=== PATIENT | female | born 1935 | race Caucasian/White ===

== ENCOUNTER 2017-01-14 16:21 | Inpatient (IN) ==
[2017-01-14] MEDS ORDERED: ENOXAPARIN 100 MG/ML SYRINGE SUBCUT STA (17:32)
[2017-01-14] MEDS ORDERED: ASPIRIN 325 MG TABLET PO STA (17:32)
[2017-01-14] MEDS ORDERED: DILTIAZEM 50 MG/10 ML VIAL IV STA (17:32)
--- NOTE | 2017-01-14 17:52 | Emergency Department Note ---
Arrival - Arrival ED Nursing Triage Note: PT SENT FROM DR SHELL FOR ELEVATED HR. PT STATES SHE HAS HAD THE FEELING OF HER HEART RACING X1 WEEK. DENIES SHORTNESS OF BREATH OR PAIN ANYWHERE. Mode of Arrival: Wheelchair Limitations: No Limitations Source: Patient <Gallo Nunoip Mitchell - Last Filed: 01/14/17 17:50> <Garrett Moore - Last Filed: 01/14/17 20:24> - Arrival Chief Complaint: Arrhythmia/Palpitations Stated Complaint: HEART Time Seen by Provider: 01/14/17 17:25 - History of Present Illness HPI Narrative: This is an 81-year-old white female who presents the ED complaining of palpitations the last 2 weeks. Patient was seen at a localization's office today and was noted to be in atrial fibrillation with a rate of 140. She has no prior history of atrial fibrillation. Patient denies any chest pain shortness of breath and lightheadedness fever or cough. She does have a history of Graves' disease for which she takes thyroid medications. (Tex Nuno) Allergies/Adverse Reactions: Allergies Allergy/AdvReac Type Severity Reaction Status Date / Time lisinopril AdvReac Cough Verified 01/14/17 17:09 Home Medications: Home Medications Medication Instructions Recorded Confirmed Type Aspirin [Aspirin EC] 81 mg PO BEDTIME 01/14/17 01/14/17 History Calcium (Carb)/Vit D 500-200 1 tablet PO BEDTIME 01/14/17 01/14/17 History [Oscal 500 + D] Levothyroxine Tab [Synthroid Tab] 88 mcg PO DAILY 01/14/17 01/14/17 History [place]-3 Fatty Acids [Fish Oil 1,000 mg PO BEDTIME 01/14/17 01/14/17 History Concentrate] amLODIPine [Norvasc] 5 mg PO BEDTIME 01/14/17 01/14/17 History Review of System - Review of System 12 point system: reviewed and no additional remarkable complaints except as stated - Review of System Cardiovascular: Present: as per HPI, palpitations <Tex Nuno Mitchell - Last Filed: 01/14/17 17:50> Medical,Surgical,& Family Hx - Medical History Medical History: noncontributory Cardio: History of: Cardiac Dysrhythmia (A-FIB), Hypertension Endocrine: History of: Thyroid Disorder (GRAVES DISEASE) - Social History Smoking Status: Never smoker Frequency of Alcohol Use: None Type of Drug Use: None <Tex Nuno - Last Filed: 01/14/17 17:50> Exam - General General appearance: alert, in no apparent distress - Head Head exam: Present: atraumatic - Eye Eye exam: Present: normal appearance, PERRL, EOMI - ENT ENT exam: Present: normal exam, normal oropharynx, TM's normal bilaterally - Neck Neck exam: Present: normal inspection. Absent: lymphadenopathy - Chest Chest inspection: Present: normal inspection - Respiratory Respiratory exam: Present: normal lung sounds bilaterally. Absent: rales, respiratory distress, wheezes - Cardiovascular Cardiovascular exam: Present: tachycardia, irregular rhythm. Absent: murmur, rubs, gallop - Abdominal Exam Abdominal exam: Present: soft. Absent: distention, tenderness - Rectal Exam Rectal exam: Present: deferred - Extremities Exam Extremities exam: Present: normal inspection - Back Exam Back exam: Present: normal inspection - Neurological Exam Neurological exam: Present: alert, oriented X3, CN II-XII intact - Psychiatric Psychiatric exam: Present: normal affect, normal mood - Skin Skin exam: Present: warm, dry <Tex Nuno - Last Filed: 01/14/17 17:50> Vital Signs: Vital Signs Temperature 97.1 F L 01/14/17 17:21 Pulse Rate 90 01/14/17 19:03 Respiratory Rate 16 01/14/17 19:03 Blood Pressure 120/86 01/14/17 19:03 O2 Sat by Pulse Oximetry 95 01/14/17 19:03 Course <Tex Nuno - Last Filed: 01/14/17 17:50> - Consultations Time: 20:22 <Garrett Moore - Last Filed: 01/14/17 20:24> - Consultations Consultation #1: Hospitalist will admit patient (Garrett Moore) Results - Labs CBC & BMP: 01/14/17 18:41 01/14/17 18:41 Lab Results: I have reviewed the patients labs <Garrett Moore - Last Filed: 01/14/17 20:24> Disposition <Tex Nuno - Last Filed: 01/14/17 17:50> Case discussed with: patient Time of Disposition: 20:24 <Garrett Moore - Last Filed: 01/14/17 20:24> Clinical Impression: Palpitations, New-onset A. fib RVR Disposition: Still a Patient Condition: Stable
--- NOTE | 2017-01-14 18:06 | XRay Report ---
XR chest 1V portable Indication: Shortness of breath. Chest one view: No comparison. Heart is borderline enlarged. Mediastinal contours unremarkable. There is airways disease present with diffuse periosteal thickening, moderately severe. No focal pneumonia. No significant pulmonary edema. Impression: Airways disease such as chronic bronchitis or viral syndrome. Borderline cardiomegaly without overt CHF. PROCEDURE INTERPRETED AT [facility] DEPARTMENT OF RADIOLOGY Final Report Signed by: Morgan Tinajero M.D.
[2017-01-14] MEDS ORDERED: ENOXAPARIN 80 MG/0.8 ML SYRINGE SUBCUT ONE (18:31)
[2017-01-14] MEDS ORDERED: DILTIAZEM 100 MG VIAL.ADD IV ONE (18:32)
[2017-01-14] MEDS ORDERED: ASPIRIN 325 MG TABLET ONE (18:32)
[2017-01-14] MEDS ORDERED: DILTIAZEM 50 MG/10 ML VIAL IV ONE (18:32)
[2017-01-14] MEDS: DILTIAZEM INJ 100 MG in SODIUM CHLORIDE 0.9% 100 ML IV SCH (18:44)
[2017-01-14 19:10] LABS: Basophils # 0.1 10*3/uL (0.0-0.2); Basophils % 0.7 % (0.0-0.8); Eosinophils # 0.2 10*3/uL (0.0-0.87); Eosinophils % 2.6 % (0.00-10.9); Hematocrit 47.3 VOL% (35.7-47.0); Immature Granulocytes % 0.3 %; Immature Granulocytes Absolute 0.02 #; Lymphocytes # 2.7 10*3/uL (1.4-4.0); Lymphocytes % 36.4 % (21.3-54.2); Mean Corpuscular HGB Conc 31.7 GM/DL (32-36); Mean Corpuscular Hemoglobin 29 PG (27-34); Mean Platelet Volume 10.3 FL (9.6-12.0); Monocytes # 0.6 10*3/uL (0.11-0.8); Monocytes % 8.6 % (1.7-12.7); Neutrophils # 3.8 10*3/uL (1.4-7.4); Neutrophils % 51.4 % (38.7-73.9); Platelet Count 248 T/CUMM (130-400); Red Blood Count 5.14 MC/CUMM (3.8-5.5); Red Cell Distribution Width 13.7 % (9.3-17.3); White Blood Count 7.4 T/CUMM (4-12)
[2017-01-14 19:22] LABS: Alanine Aminotransferase 24 U/L (13-56); Albumin 4.1 G/DL (3.4-5.0); Alkaline Phosphatase 94 U/L (45-117); Aspartate Amino Transferase 18 U/L (0-37); Blood Urea Nitrogen 13 MG/DL (7-18); Calcium 8.8 MG/DL (8.5-10.1); Glucose 94 MG/DL (74-106); Magnesium 2.2 MG/DL (1.8-2.4); Osmolality,Calculated 280.3 MOS/KG (273-304); Potassium 3.9 MMOL/L (3.5-5.1); Sodium 141 MMOL/L (136-145); Total Protein 6.9 G/DL (6.4-8.3); Troponin I Only < 0.015 NG/ML (0.00-0.045)
[2017-01-14] MEDS ORDERED: ONDANSETRON 4 MG/2 ML VIAL IV PRN (20:27)
[2017-01-14] MEDS ORDERED: ACETAMINOPHEN 325 MG TABLET PO PRN (20:27)
[2017-01-14] MEDS ORDERED: DILTIAZEM INJ 100 MG in SODIUM CHLORIDE 0.9% 100 ML IV SCH (20:30)
--- NOTE | 2017-01-14 20:34 | EKG Report ---
Stationary ECG Study [facility] ER Test Date: 01/14/2017 5:10:50 PM Pat Name: KIM SANCHEZ Department: Room: Gender: F Talkback Host: : [phone] Requested by: Estrella Verdin Order Number: [id number] Reading MD: VALENCIA LINK Intervals [place] Rate: 140 P: 999 MS: 0 QRS: -68 QRSD: 107 T: 72 QT: 290 QTc: 371 Interpretive Statements ATRIAL FIBRILLATION WITH RAPID VENTRICULAR RESPONSE ABNORMAL LEFT AXIS DEVIATION ANTEROSEPTAL INFARCT, AGE UNDETERMINED Electronically Signed On 01-15-17 11:29:16 CDT by VALENCIA LINK [email or web address]
--- NOTE | 2017-01-14 20:57 | Hospitalist History & Physical ---
Assessment and Plan (1) Atrial fibrillation with rapid ventricular response Status: Acute Assessment and plan: Diltiazem drip, subcu Lovenox, p.o. diltiazem, cardiology consult in a.m., check TSH Current Visit: Yes (2) Graves disease Status: Acute Assessment and plan: Status post radioactive iodine in the remote past currently on Synthroid replacement Current Visit: Yes History of Present Illness Chief complaint: Palpitation History of present illness: Ms. Brantley is a 81 year old female with a history of Graves' disease that received radioactive iodine in the remote past and was placed on Synthroid. She has had a recent change in her Synthroid medicine from 88-100 g. For the last 2 days she has noted palpitations becoming more frequently. She made an appointment to see Dr. Ryder today and was found to be in A. fib with rapid ventricular response. She was sent to the emergency room her rate was 140 at that time. She said she has had atrial fib when she was first diagnosed with Graves' disease but then it resolved without problems. She also has a history of hypertension but otherwise she is extremely healthy. She has not seen a coin machine mechanic here before. Home Medications Medication Instructions Recorded Confirmed Type Aspirin [Aspirin EC] 81 mg PO BEDTIME 01/14/17 01/14/17 History Calcium (Carb)/Vit D 500-200 1 tablet PO BEDTIME 01/14/17 01/14/17 History [Oscal 500 + D] Levothyroxine Tab [Synthroid Tab] 88 mcg PO DAILY 01/14/17 01/14/17 History [place]-3 Fatty Acids [Fish Oil 1,000 mg PO BEDTIME 01/14/17 01/14/17 History Concentrate] amLODIPine [Norvasc] 5 mg PO BEDTIME 01/14/17 01/14/17 History Allergies Allergy/AdvReac Type Severity Reaction Status Date / Time lisinopril AdvReac Cough Verified 01/14/17 17:09 Medical,Surgical,& Family Hx - Medical History Cardio: History of: Cardiac Dysrhythmia (A-FIB), Hypertension Endocrine: History of: Thyroid Disorder (GRAVES DISEASE) - Surgical History HEENT Surgeries: Surgical HX of: Eye Surgery (Bilateral cataract) - Family History Family History: Reports;: Family Diabetes, Family Heart Disease - Social History Smoking Status: Never smoker Frequency of Alcohol Use: None Type of Drug Use: None Marital Status: Lives With:: Spouse Functional capacity: independent ambulation - Constitutional Constitutional: Absent: fatigue, frequent falls, headache(s), weight loss - EENT Eyes: Absent: blurry vision, diplopia Ears: Absent: decreased hearing, ear discharge Nose, mouth and throat: Absent: headache(s), sore throat - Cardiovascular Cardiovascular: Present: palpitations. Absent: chest pain at rest, dyspnea - Respiratory Respiratory: Absent: dyspnea, dyspnea on exertion - Gastrointestinal Gastrointestinal: Absent: constipation, diarrhea, nausea, vomiting - Genitourinary Genitourinary: Absent: difficulty urinating, dysuria - Neurological Neurological: Absent: confusion, headache(s), syncope - Psychiatric Psychiatric: Absent: anxiety, depression - Endocrine Endocrine: Absent: cold intolerance, fatigue, heat intolerance - Hematologic/Lymphatic Hematologic/Lymphatic: Absent: easy bleeding, easy bruising Exam - Constitutional Vitals: Period Temp Pulse Resp BP Sys/Eller Pulse Ox Last 24 Hr 97.1 F-97.1 F 90-132 16-19 120-150/86-111 95-97 General appearance: normal weight, no acute distress - Head Head exam: Present: normal inspection, normocephalic - Eye Eye exam: Present: EOMI. Absent: scleral icterus Pupils: Present: JOHN, normal accommodation - ENT ENT exam: Present: normal exam, normal external ear exam - Neck Neck exam: Absent: lymphadenopathy, thyromegaly - Respiratory Respiratory exam: Absent: clear to auscultation bilaterally, wheezes - Cardiovascular Cardiovascular exam: Present: irregular rhythm, tachycardia - GI/Abdominal GI/Abdominal exam: Present: normal bowel sounds, soft. Absent: tenderness - Extremities Exam Extremities exam: Present: normal inspection, normal capillary refill - Neurological Exam Neurological exam: Present: alert, oriented X3, CN II-XII intact, reflexes normal. Absent: motor sensory deficit - Psychiatric Psychiatric exam: Present: normal affect, normal mood - Skin Skin exam: Present: normal color, warm Results - Labs CBC & BMP: 01/14/17 18:41 01/14/17 18:41 Lab Results: I have reviewed the past 24 hour labs - EKG EKG shows: atrial fibrillation (Q waves in V1 and V2 with ST depression in lateral leads) - Diagnostic Findings Procedure: Chest x-ray: report reviewed by me (Nothing acute)
[2017-01-14] MEDS ORDERED: ASPIRIN EC 81 MG TABLET PO SCH (21:00)
[2017-01-14 21:04] LABS: PT Patient Result 10.8 SECS; Partial Thromboplastin Time 27.9 SECS (0-40)
[2017-01-14] MEDS: DILTIAZEM 60 MG TABLET PO SCH (22:30)
[2017-01-14] MEDS: SODIUM CHLORIDE 0.9% 1,000 ML IV SCH (22:30)
[2017-01-14 23:13] LABS: Troponin I Only < 0.015 NG/ML (0.00-0.045)
[2017-01-15 03:53] LABS: Basophils % 0.5 % (0.0-0.8); Eosinophils # 0.2 10*3/uL (0.0-0.87); Eosinophils % 3.7 % (0.00-10.9); Hematocrit 42.1 VOL% (35.7-47.0); Hemoglobin 13.2 GM/DL (12.0-16.0); Immature Granulocytes % 0.3 %; Immature Granulocytes Absolute 0.02 #; Lymphocytes # 2.6 10*3/uL (1.4-4.0); Lymphocytes % 40.9 % (21.3-54.2); Mean Corpuscular HGB Conc 31.4 GM/DL (32-36); Mean Corpuscular Hemoglobin 29 PG (27-34); Mean Corpuscular Volume 93.3 FL (87-102); Mean Platelet Volume 10.5 FL (9.6-12.0); Monocytes # 0.8 10*3/uL (0.11-0.8); Monocytes % 12.3 % (1.7-12.7); Neutrophils # 2.7 10*3/uL (1.4-7.4); Neutrophils % 42.3 % (38.7-73.9); Platelet Count 216 T/CUMM (130-400); Red Blood Count 4.51 MC/CUMM (3.8-5.5); Red Cell Distribution Width 13.7 % (9.3-17.3); White Blood Count 6.4 T/CUMM (4-12)
[2017-01-15 04:28] LABS: Troponin I Only < 0.015 NG/ML (0.00-0.045)
[2017-01-15 04:38] LABS: Calcium 8.4 MG/DL (8.5-10.1)
[2017-01-15 04:39] LABS: Osmolality,Calculated 292.4 MOS/KG (273-304); Potassium 3.8 MMOL/L (3.5-5.1)
[2017-01-15] MEDS ORDERED: ENOXAPARIN 80 MG/0.8 ML SYRINGE SUBCUT SCH (06:00)
[2017-01-15] MEDS: PANTOPRAZOLE 40 MG TABLET PO SCH (08:36)
[2017-01-15] MEDS: ASPIRIN 325 MG TABLET PO SCH (08:36)
[2017-01-15] MEDS: DILTIAZEM 60 MG TABLET PO SCH ×3 (08:36→20:48)
[2017-01-15] MEDS ORDERED: LEVOTHYROXINE 88 MCG TABLET PO SCH (09:00)
[2017-01-15] MEDS ORDERED: DIGOXIN 0.5 MG/2 ML AMP IV ONE (10:07)
--- NOTE | 2017-01-15 11:47 | Hospitalist Progress Note ---
Assessment and Plan (1) Atrial fibrillation with rapid ventricular response Status: Acute Assessment and plan: Continue diltiazem drip and subcu Lovenox, p.o. diltiazem, will add dig, cardiology consulted., May need Eliquis Current Visit: Yes (2) Graves disease Status: Acute Assessment and plan: TSH normal free T4 upper limit of normal will restart Synthroid at lower dose tomorrow. Current Visit: Yes Hospitalist: Subjective Interval history: Patient reports feeling fine but she remains in atrial fib and is still on 5 mg of a Dilt drip. Will add dig to her regimen. Cardiology will be seeing her later. Exam - Constitutional Vitals: Period Temp Pulse Resp BP Sys/Eller Pulse Ox Last 24 Hr 97.1 F-97.7 F 72-97 16-20 100-125/60-76 91-99 Exam: Heart Rate-[irregular rate and rhythm] Lungs-[CTAB] GI-[+bs soft, NT] Ext-[no edema] Neuro [Motor 5/5], [alert and oriented times 3] psych [normal mood and affect] General [no acute distress] Results - Labs CBC & BMP: 01/15/17 02:57 01/15/17 02:57 Lab Results: I have reviewed the past 24 hour labs Quality Measures - Stroke Symptom Onset Unknown: No
--- NOTE | 2017-01-15 12:03 | Cardiology Consult Note ---
<Shadia Azevedo E - Last Filed: 01/15/17 12:14> Assessment and Plan - Time spent with patient Time spent with patient: Greater than 30 minutes (Due to assessment, plan, and documentation.) (1) Atrial fibrillation with rapid ventricular response Status: Acute Assessment and plan: Continue with IV Cardizem and wean to p.o. She has already been started on Cardizem 60 mg p.o. 3 times daily. Rates currently controlled in the 70s and 80s. Will start on Eliquis 5 mg p.o. twice daily for stroke prevention. Creatinine is 0.6. She has had no previous bleeding issues and is not at risk for falls. Current Visit: Yes (2) Palpitations Status: Acute Assessment and plan: Currently asymptomatic. Current Visit: Yes (3) Hypertension Status: Chronic Assessment and plan: Currently well controlled on Norvasc. We will continue to monitor and adjust as needed. 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 Current Visit: Yes (5) Graves disease Status: Chronic Assessment and plan: Managed by her PCP. Currently has normal TSH and free T4. She is on Synthroid 88 g p.o. daily. She previously saw an business office technician in [place] underwent radioactive iodine treatment. Current Visit: Yes History of Present Illness - Data of Consult Patient: new to practice Consult date: 01/14/17 Requesting Physician: Estrella Pickard Primary care physician: Geri Ryder - Consult Narrative Reason for consult: AF RVR History of present illness: PIT FURNACE MELTER: NONE PCP: DR. GERI RYDER Allergies: Lisinopril (cough) Ms. Brantley is a 81 year old female who does not follow routinely with cardiology. Her primary care provider is Dr. Ryder. She has history of hypertension and Graves' disease. She is a lifetime non-smoker. She has risk factors significant for: Hypertension, age. She is normally a very active individual. She previously walked 1.5 miles per day until she injured her foot in October 2016. She has not resumed her exercise regimen since then but plans on doing so. She went to Dr. Ryder's office yesterday due to an increased frequency of palpitations. She reports for the last several weeks she has noticed feeling like her heart has been racing. She reports when it does this it makes her feel "jittery." She denies any associated chest pain, shortness of breath, dizziness, lightheadedness, syncope. She reports these episodes of palpitations may happen at rest or during activity. Ms. Brantley tells me that she has had atrial fibrillation in the past when she was first diagnosed with Graves' disease approximately 20 years ago. She does not that time she saw a strategic accounts manager in [place] and underwent a stress test which was normal and the atrial fibrillation eventually resolved on its own. She did require radioactive iodine for treatment for Graves' disease and is currently on Synthroid replacement. She reports she is able to climb 2 flights of stairs without chest pain or shortness of breath. She denies any history of melena or hematochezia but does report chronic hematuria. She tells me this is been worked up in the past and she has undergone cystogram which was benign. Her chronic hematuria is felt to be a result of frequent cystitis during childhood. She does report occasional pain underneath her left breast. She describes this as a muscle ache which will reach around to her back that occurs once every couple of weeks. She reports this may last half a day and go away or taking [id number] medication. She has no associated shortness of breath, palpitations, dizziness, lightheadedness, diaphoresis, nausea, vomiting with these episodes. An echocardiogram has been ordered and will be read by Dr. Chacko. She is currently on IV Cardizem at 5 mg an hour. Heart rates are better controlled in the 70s and 80s. She is still in atrial fibrillation. Creatinine 0.6. TSH 1.07, free T4 1.37. She has had serial negative troponins, CK-MB, CPK. Dr. Chacko to follow with further plan and addendum. Assessment/Plan: 1. Atrial fibrillation with rapid ventricular response -continue with IV Cardizem and went p.o. She has already been started on Cardizem 6 mg p.o. 3 times daily. Next currently controlled in the 70s and 80s. Will start on Eliquis 5 mg p.o. twice daily for stroke prevention. Creatinine is 0.6. She has had no previous bleeding issues and is not at risk for falls. 2. Palpitations -probably asymptomatic. 3. Hypertension -currently well controlled on Norvasc 5 mg p.o. daily. Will continue to monitor and adjust as needed. 4. Allergy to TOÑO inhibitors -patient reports cough with lisinopril. 5. Graves' disease -managed by her PCP. Currently has normal TSH and free T4. She is on Synthroid 88 g p.o. daily. She previously saw an business office technician in [facility] and underwent radioactive iodine treatment. CC: Estrella Pickard MD - Home Medications and Allergies Home Medications: Home Medications Medication Instructions Recorded Confirmed Type Aspirin [Aspirin EC] 81 mg PO BEDTIME 01/14/17 01/14/17 History Calcium (Carb)/Vit D 500-200 1 tablet PO BEDTIME 01/14/17 01/14/17 History [Oscal 500 + D] Levothyroxine Tab [Synthroid Tab] 88 mcg PO DAILY 01/14/17 01/14/17 History [place]-3 Fatty Acids [Fish Oil 1,000 mg PO BEDTIME 01/14/17 01/14/17 History Concentrate] amLODIPine [Norvasc] 5 mg PO BEDTIME 01/14/17 01/14/17 History Allergies/Adverse Reactions: Allergies Allergy/AdvReac Type Severity Reaction Status Date / Time lisinopril AdvReac Cough Verified 01/14/17 17:09 Review of systems: - Constitutional: Present: As per HPI. Absent: anorexia, chills, daytime sleepiness, excessive sweating, fever(s), frequent falls, headache(s), increased appetite, lethargy, malaise, night sweats, stops breathing during sleep, weakness, weight gain, weight loss, fatigue. - EENT Eyes: Present: As per HPI. Absent: blurry vision, diplopia, loss of vision Ears: Present: As per HPI. Absent: decreased hearing, ear discharge, ear pain Nose, mouth and throat: Present: As per HPI. Absent: dysphagia, epistaxis, headache(s), hoarseness, lip swelling, nasal congestion, neck mass, neck pain, sinus pressure, sore throat, throat swelling, tongue swelling, vertigo - Cardiovascular: Present: palpitations, chest pain at rest, as per HPI. Absent : chest pain with activity, dyspnea, dyspnea on exertion, edema, claudication, diaphoresis, radiating jaw, neck or arm pain, lightheadedness, orthopnea, PND - Respiratory: Present: as per HPI. Absent: dyspnea, dyspnea on exertion, cough , hemoptysis, wheezing, snoring, pain on inspiration - Gastrointestinal: Present: As per HPI. Absent: abdominal pain, bloating, change in bowel habits, constipation, diarrhea, heartburn, hematemesis, hematochezia, loose stools, melena, nausea, vomiting - Genitourinary: Present: Chronic hematuria, As per HPI. Absent: difficulty urinating, dysuria, flank pain, nocturia, urinary frequency, urinary incontinence - Musculoskeletal: Present: myalgias, As per HPI. Absent: arthralgias, back pain , joint swelling, limited range of motion, muscle cramps, muscle weakness - Neurological: Present: As per HPI. Absent: abnormal gait, abnormal speech, behavioral changes, confusion, convulsions, disequilibrium, dizziness, focal weakness, frequent falls, headache(s), memory loss, numbness, paresthesias, radicular pain, syncope, tremor(s) - Psychiatric: Present: As per HPI. Absent: anxiety, confusion, depression, panic attacks - Endocrine: Present: As per HPI. Absent: cold intolerance, fatigue, heat intolerance, polydipsia, polyphagia - Hematologic/Lymphatic: Present: As per HPI. Absent: easy bleeding, easy bruising, lymphadenopathy Medical,Surgical,& Family Hx - Medical History Cardio: History of: Cardiac Dysrhythmia (A-FIB), Hypertension Endocrine: History of: Thyroid Disorder (GRAVES DISEASE) Genitourinary: History of: Problems (chronic hematuria, recurrent cystitis during childhood) - Surgical History HEENT Surgeries: Surgical HX of: Eye Surgery (Bilateral cataract) - Family History Family History: Reports;: Family Diabetes (bother sister), Family Heart Disease (bother sister mother father) - Social History Smoking Status: Never smoker Frequency of Alcohol Use: None Type of Drug Use: None Marital Status: Lives With:: Spouse Functional capacity: independent ambulation Physical Examination Vital Signs Temp Pulse Resp BP Pulse Ox 97.1 F L 121 H 16 150/111 97 01/14/17 17:02 01/14/17 17:02 01/14/17 17:02 01/14/17 17:02 01/14/17 17:02 Other: General appearance: Pleasant and cooperative. Normal weight, no acute distress. - Head Head exam: Present: normal inspection, normocephalic, atraumatic. Absent: hematoma, laceration - Eye Eye exam: Present: EOMI. Absent: conjunctival injection, nystagmus, periorbital swelling, scleral icterus, laceration to eyelids Pupils: Present: PERRL. Absent: constricted, dilated, fixed, irregular, unequal - ENT ENT exam: Present: normal exam, normal external ear exam - Neck Neck exam: Present: normal inspection. Absent: lymphadenopathy, meningismus, tenderness, thyromegaly - Respiratory Respiratory exam: Present: clear to auscultation bilaterally. Absent: accessory muscle use, chest wall tenderness - Cardiovascular Cardiovascular exam: Present: regular rate and irregular rhythm. Absent: carotid bruit, gallop, JVD, rubs, murmur - GI/Abdominal GI/Abdominal exam: Present: normal bowel sounds, soft. Absent: distended, firm , guarding, hernia, mass, tenderness, rebound. - Extremities Exam Extremities exam: Present: normal inspection, normal capillary refill. Upper extremity pulses 2+. Lower extremity pulses 2+. Absent: calf tenderness, edema - Back Exam Back exam: Present: normal inspection. Absent: muscle spasm, vertebral tenderness - Neurological Exam Neurological exam: Present: alert, oriented X3, grossly intact without resting or essential tremor - Psychiatric Psychiatric exam: Present: normal affect, normal mood - Skin Skin exam: Present: normal color, warm, dry, intact. Absent: cyanosis, diaphoretic, rash, urticaria Result/EKG - Labs CBC & BMP: 01/15/17 02:57 01/15/17 02:57 Lab Results: I have reviewed the past 24 hour labs Labs: Laboratory Results - last 24 hr 01/14/17 01/14/17 01/14/17 21:00 22:25 Unknown WBC RBC Hgb Hct MCV MCH MCHC RDW Plt Count MPV Neut % (Auto) Lymph % (Auto) Andrews % (Auto) Eos % (Auto) Baso % (Auto) Neut # (Auto) Lymph # (Auto) Andrews # (Auto) Eos # (Auto) Baso # (Auto) Immature Gran % Nucleated RBC % Immature Gran # Nucleated RBCs # INR 1.0 PT Patient/Control Mix 10.8 Circ Anticoag PTT 27.9 Sodium Potassium Chloride Carbon Dioxide Anion Gap BUN Creatinine GFR Calculation BUN/Creatinine Ratio Glucose Calculated Osmolality Calcium Total Creatine Kinase 190 CK-MB (CK-2) 2.2 Troponin I < 0.015 Free T4 1.37 01/15/17 01/15/17 01/15/17 02:57 02:57 02:57 WBC 6.4 RBC 4.51 Hgb 13.2 Hct 42.1 MCV 93.3 MCH 29 MCHC 31.4 L RDW 13.7 Plt Count 216 MPV 10.5 Neut % (Auto) 42.3 Lymph % (Auto) 40.9 Andrews % (Auto) 12.3 Eos % (Auto) 3.7 Baso % (Auto) 0.5 Neut # (Auto) 2.7 Lymph # (Auto) 2.6 Andrews # (Auto) 0.8 Eos # (Auto) 0.2 Baso # (Auto) 0.0 Immature Gran % 0.3 Nucleated RBC % 0.0 Immature Gran # 0.02 Nucleated RBCs # 0.00 INR PT Patient/Control Mix Circ Anticoag PTT Sodium 147 H Potassium 3.8 Chloride 109 H Carbon Dioxide 27 Anion Gap 14.8 BUN 12 Creatinine 0.60 GFR Calculation 89 BUN/Creatinine Ratio 20.00 Glucose 116 H Calculated Osmolality 292.4 Calcium 8.4 L Total Creatine Kinase 159 CK-MB (CK-2) 2.0 Troponin I < 0.015 Free T4 - EKG EKG results: interpreted by me EKG shows: atrial fibrillation Quality Measures - Stroke Symptom Onset Unknown: No <GinnaFahad - Last Filed: 01/15/17 14:59> History of Present Illness - Consult Narrative History of present illness: Cardiology addendum. Patient examined and chart reviewed. She has been having palpitations for the past [address] Ryder in the office yesterday. EKG showed atrial fib and she was referred to the ER for further evaluation and treatment. Currently on IV Cardizem and Eliquis 5 mg twice daily. Patient has chronic hypertension and has been on Norvasc for about 3 years. No history of stroke. Lifetime non-smoker. No history of heart attack congestive heart failure or exertional angina. She does have a history of Graves' disease treated in 1996 with radioactive iodine in [place]. She also had atrial fib at that time that converted with medication. Free T4 level is 1.37. Negative CPK. Chest x-ray shows mild cardiomegaly but no heart failure or infiltrate. Plan Continue IV Cardizem Continue Eliquis 5 mg twice daily Echo Doppler Begin sotalol 80 mg twice daily CC: Estrella Pickard MD Physical Examination Vital Signs Temp Pulse Resp BP Pulse Ox 97.1 F L 121 H 16 150/111 97 01/14/17 17:02 01/14/17 17:02 01/14/17 17:02 01/14/17 17:02 01/14/17 17:02 Result/EKG - Labs CBC & BMP: 01/15/17 02:57 01/15/17 02:57 Labs: Laboratory Results - last 24 hr 01/14/17 01/14/17 01/14/17 21:00 22:25 Unknown WBC RBC Hgb Hct MCV MCH MCHC RDW Plt Count MPV Neut % (Auto) Lymph % (Auto) Andrews % (Auto) Eos % (Auto) Baso % (Auto) Neut # (Auto) Lymph # (Auto) Andrews # (Auto) Eos # (Auto) Baso # (Auto) Immature Gran % Nucleated RBC % Immature Gran # Nucleated RBCs # INR 1.0 PT Patient/Control Mix 10.8 Circ Anticoag PTT 27.9 Sodium Potassium Chloride Carbon Dioxide Anion Gap BUN Creatinine GFR Calculation BUN/Creatinine Ratio Glucose Calculated Osmolality Calcium Total Creatine Kinase 190 CK-MB (CK-2) 2.2 Troponin I < 0.015 Free T4 1.37 01/15/17 01/15/17 01/15/17 02:57 02:57 02:57 WBC 6.4 RBC 4.51 Hgb 13.2 Hct 42.1 MCV 93.3 MCH 29 MCHC 31.4 L RDW 13.7 Plt Count 216 MPV 10.5 Neut % (Auto) 42.3 Lymph % (Auto) 40.9 Andrews % (Auto) 12.3 Eos % (Auto) 3.7 Baso % (Auto) 0.5 Neut # (Auto) 2.7 Lymph # (Auto) 2.6 Andrews # (Auto) 0.8 Eos # (Auto) 0.2 Baso # (Auto) 0.0 Immature Gran % 0.3 Nucleated RBC % 0.0 Immature Gran # 0.02 Nucleated RBCs # 0.00 INR PT Patient/Control Mix Circ Anticoag PTT Sodium 147 H Potassium 3.8 Chloride 109 H Carbon Dioxide 27 Anion Gap 14.8 BUN 12 Creatinine 0.60 GFR Calculation 89 BUN/Creatinine Ratio 20.00 Glucose 116 H Calculated Osmolality 292.4 Calcium 8.4 L Total Creatine Kinase 159 CK-MB (CK-2) 2.0 Troponin I < 0.015 Free T4
[2017-01-15] MEDS: APIXABAN 5 MG TABLET PO SCH ×2 (12:59→20:48)
--- NOTE | 2017-01-15 15:56 | ECHO Report ---
Iona Brantley Exam Date: 01/15/2017 07:59 Referring Physician: Technologist: Kellen Pereira RDCS Age: 81 Ht (in): 65 Wt (lb): 155 Gender: F Exam Location: [facility] Echo Indications: Atrial fibrillation, Palpitations, Essential (primary) hypertension, Grraves disease BP: 109 / 69 HR: 94 Rhythm: Atrial fibrillation Technical Quality: Fair IMPRESSIONS EF 45 %, mild global hypokinesis. The right ventricle is normal in size and function. Moderately increased right atrial size. Moderately increased left atrial size. Thickened mitral valve. Mild mitral valve regurgitation. Aortic valve sclerosis. Trace to mild aortic valve regurgitation. Lcgt-xc-[id number] tricuspid valve regurgitation. JPA12-68 mmHG. Trace pulmonary valve regurgitation. Normal pericardium without effusion. Normal ascending aorta dimension. MEASUREMENTS (Male / Female) Normal Values 2D ECHO LV Diastolic Diameter PLAX 4.4 cm 4.2 - 5.9 / 3.9 - 5.3 cm LV Systolic Diameter PLAX 3.3 cm LV Fractional Shortening PLAX 26.0 % IVS Diastolic Thickness 0.9 cm 0.6 - 1.0 / 0.6 - 0.9 cm LVPW Diastolic Thickness 1.1 cm 0.6 - 1.0 / 0.6 - 0.9 cm RV Internal Dim ED PLAX 2.9 cm Aortic Root Diameter 3.3 cm LA Systolic Diameter LX 3.9 cm 3.0 - 4.0 / 2.7 - 3.8 cm DOPPLER TR Peak Velocity 262.0 cm/s TR Peak Gradient 27.5 mmHg FINDINGS Left Ventricle EF 45 %, mild global hypokinesis. Right Ventricle The right ventricle is normal in size and function. Right Atrium Moderately increased right atrial size. Left Atrium Moderately increased left atrial size. Mitral Valve Thickened mitral valve. Mild mitral valve regurgitation. Aortic Valve Aortic valve sclerosis. Trace to mild aortic valve regurgitation. Tricuspid Valve Morphologically normal tricuspid valve. Haxf-te-rozwvxrr tricuspid valve regurgitation. IUU75-31 mmHG. Pulmonic Valve Morphologically normal pulmonic valve. Trace pulmonary valve regurgitation. Pericardium Normal pericardium without effusion. Aorta Normal ascending aorta dimension. Daniel Chacko (Electronically Signed) Final Date: 15 January 2017 15:55
[2017-01-15] MEDS: SOTALOL 80 MG TABLET PO SCH (20:47)
[2017-01-16] MEDS: DILTIAZEM INJ 100 MG in SODIUM CHLORIDE 0.9% 100 ML IV SCH (00:12)
[2017-01-16] MEDS: SODIUM CHLORIDE 0.9% 1,000 ML IV SCH (00:12)
[2017-01-16 02:47] LABS: Basophils % 0.5 % (0.0-0.8); Eosinophils # 0.2 10*3/uL (0.0-0.87); Eosinophils % 3.6 % (0.00-10.9); Hematocrit 42.8 VOL% (35.7-47.0); Hemoglobin 13.4 GM/DL (12.0-16.0); Immature Granulocytes % 0.2 %; Immature Granulocytes Absolute 0.01 #; Lymphocytes # 2.5 10*3/uL (1.4-4.0); Lymphocytes % 39.3 % (21.3-54.2); Mean Corpuscular HGB Conc 31.3 GM/DL (32-36); Mean Corpuscular Hemoglobin 30 PG (27-34); Mean Corpuscular Volume 94.1 FL (87-102); Mean Platelet Volume 10.4 FL (9.6-12.0); Monocytes # 0.8 10*3/uL (0.11-0.8); Monocytes % 11.9 % (1.7-12.7); Neutrophils # 2.9 10*3/uL (1.4-7.4); Neutrophils % 44.5 % (38.7-73.9); Platelet Count 215 T/CUMM (130-400); Red Blood Count 4.55 MC/CUMM (3.8-5.5); Red Cell Distribution Width 13.8 % (9.3-17.3); White Blood Count 6.5 T/CUMM (4-12)
[2017-01-16 03:13] LABS: Calcium 8.6 MG/DL (8.5-10.1); Magnesium 2.1 MG/DL (1.8-2.4); Osmolality,Calculated 289.7 MOS/KG (273-304); Potassium 4.3 MMOL/L (3.5-5.1)
[2017-01-16] MEDS: LEVOTHYROXINE 88 MCG TABLET PO SCH (07:06)
--- NOTE | 2017-01-16 07:23 | EKG Report ---
Stationary ECG Study [facility] Test Date: 01/16/2017 7:23:42 AM Pat Name: KIM SANCHEZ Department: Room: 276 Gender: F Manager Information: HELADIO : 1935 Requested by: Shadia Azevedo Order Number: [id number] Reading MD: SHIVA SAUCEDO Intervals [place] Rate: 68 P: 999 MN: 0 QRS: -70 QRSD: 106 T: -59 QT: 394 QTc: 410 Interpretive Statements ATRIAL FIBRILLATION MARKED LEFT AXIS DEVIATION POOR R-WAVE PROGRESSION Electronically Signed On 01-16-17 18:02:49 CDT by SHIVA SAUCEDO [email or web address]
[2017-01-16] MEDS ORDERED: DIGOXIN 0.5 MG/2 ML AMP IV SCH (09:00)
[2017-01-16] MEDS: ASPIRIN 325 MG TABLET PO SCH (09:51)
[2017-01-16] MEDS: DILTIAZEM 60 MG TABLET PO SCH (09:51)
[2017-01-16] MEDS: APIXABAN 5 MG TABLET PO SCH ×2 (09:52→20:34)
[2017-01-16] MEDS: PANTOPRAZOLE 40 MG TABLET PO SCH (09:52)
[2017-01-16] MEDS: SOTALOL 80 MG TABLET PO SCH ×3 (09:53→20:34)
--- NOTE | 2017-01-16 11:07 | History and Physical Update ---
Sedation H&P Update - History and Physical H&P was reviewed, the patient examined and there: are no changes in the patients condition since last H&P was completed. - Dictation Physical: refer to scanned H&P - Physical Exam Mental Status: alert and oriented Heart: regular rate and rhythm Lung: clear to auscultation Abdomen: within normal limits Vitals: within normal limits - Sedation Plan for Sedation: moderate Patient Consent: Procedure disscussed with patient and patinet has consented., Risks and benefits were discussed with patient,including infection,, bleeding, injury to surrounding structures, seizure, temporary nerve, Patient understands and accepts potential risks/benefits and agrees to, proceed. ASA Class: II Airway Assessment: Class II: Soft palate, uvula, fauces visible
--- NOTE | 2017-01-16 11:48 | Hospitalist Progress Note ---
Assessment and Plan (1) Atrial fibrillation with rapid ventricular response Status: Acute Assessment and plan: Off still drip, still on diltiazem p.o. and Betapace, defibrillation plan for in a.m. Current Visit: Yes (2) Graves disease Status: Chronic Assessment and plan: TSH normal free T4 upper limit of normal continue Synthroid Current Visit: Yes Hospitalist: Subjective Interval history: Patient remains in A. fib today. Nursing reports patient bradycardia and several cardiac pauses lasting greater than 3 seconds. We have stopped the digoxin. I have personally spoke with Dr. Chacko and he will shock her into regular rhythm tomorrow morning. Already on Eliquis. Patient says she feels great. Exam - Constitutional Vitals: Period Temp Pulse Resp BP Sys/Eller Pulse Ox Last 24 Hr 97.5 F-99.2 F 53-76 18-20 99-131/52-76 93-98 Exam: Heart Rate-[irr] Lungs-[CTAB] GI-[+bs soft, NT] Ext-[no edema] Neuro [Motor 5/5], [alert and oriented times 3] psych [normal mood and affect] General [no acute distress] Results - Labs CBC & BMP: 01/16/17 02:23 01/16/17 02:23 Lab Results: I have reviewed the past 24 hour labs Quality Measures - Stroke Symptom Onset Unknown: No
--- NOTE | 2017-01-17 07:33 | EKG Report ---
Stationary ECG Study [facility] Test Date: 01/17/2017 7:34:14 AM Pat Name: KIM SANCHEZ Department: Room: 276 Gender: F Tint Layer: HELADIO : 1935 Requested by: Shadia Azevedo Order Number: [id number] Reading MD: VALENCIA LINK Intervals [place] Rate: 74 P: 999 [place]: 0 QRS: -74 QRSD: 108 T: -6 QT: 336 QTc: 364 Interpretive Statements ATRIAL FIBRILLATION WITH ABERRANT CONDUCTION OR VENTRICULAR PREMATURE COMPLEXES MARKED LEFT AXIS DEVIATION MODERATE INTRAVENTRICULAR CONDUCTION DELAY NONSPECIFIC T-WAVE ABNORMALITY Electronically Signed On 01-18-17 07:07:35 CDT by VALENCIA LINK [email or web address]
[2017-01-17] MEDS ORDERED: MIDAZOLAM 10 MG/2 ML VIAL ONE ×2 (08:16→08:18)
[2017-01-17] MEDS ORDERED: NALOXONE 0.4 MG/ML VIAL ONE (08:17)
[2017-01-17] MEDS ORDERED: FLUMAZENIL 0.5 MG/5 ML VIAL IV ONE (08:30)
--- NOTE | 2017-01-17 08:39 | Event Note ---
Event note Cardioversion procedure note Preop diagnosis new onset atrial fibrillation Postop diagnosis same. The patient developed new onset atrial fibrillation. She failed to convert with sotalol and Eliquis. The cardioversion procedure were discussed with the patient and her Mitchell. A consent form was signed. Continuous O2 sat monitoring was performed. The patient received 3 mg IV Versed to achieve and maintain adequate esthesia throughout the procedure. Using the biphasic Zoll machine, apical sternal patches were placed. Successful synchronized cardioverted and was achieved the first attempt with 200 J. She cannot get her to steady sinus rhythm with occasional PACs. No bagging was required. Current blood pressure is 120/82 pulse is 68 and regular and the O2 sat is 96% on 2 L cannula. The patient begin to lighten. There were no obvious complications. Plan EKG now Continue Eliquis 5 mg twice daily Continue sotalol 80 mg twice daily No driving for 24 hours Home later today Office visit in 1 week with EKG Plan Findings discussed with patient's husbandTommy and her daughters Lucy and America
--- NOTE | 2017-01-17 08:51 | EKG Report ---
Stationary ECG Study [facility] Test Date: 01/17/2017 8:52:12 AM Pat Name: KIM SANCHEZ Department: Room: 276 Gender: F Creative Specialist: ZAKI : 1935 Requested by: Shiva Chacko Order Number: [id number] Reading MD: SHIVA CHACKO Intervals [place] Rate: 45 P: 61 ND: 185 QRS: -60 QRSD: 113 T: -39 QT: 477 QTc: 431 Interpretive Statements SINUS BRADYCARDIA WITH SINUS ARRHYTHMIA MARKED LEFT AXIS DEVIATION ANTEROSEPTAL MYOCARDIAL INFARCTION, OF INDETERMINATE AGE MODERATE T-WAVE ABNORMALITY, Electronically Signed On 01-17-17 18:16:11 CDT by SHIVA CHACKO [email or web address]
[2017-01-17] MEDS: ASPIRIN 325 MG TABLET PO SCH (09:35)
[2017-01-17] MEDS: LEVOTHYROXINE 88 MCG TABLET PO SCH (09:35)
[2017-01-17] MEDS: APIXABAN 5 MG TABLET PO SCH (09:35)
[2017-01-17] MEDS: PANTOPRAZOLE 40 MG TABLET PO SCH (09:35)
[2017-01-17] MEDS: SOTALOL 80 MG TABLET PO SCH (09:36)
--- NOTE | 2017-01-17 10:35 | Discharge Summary ---
Hospital Course - Hospital Course Hospital Course: 81-year-old female with a history of hypothyroidism presents from Dr. Ryder's office with complaints of palpitations. Patient was noted to be in atrial fib with rapid ventricular response and was sent to the emergency room for admission. Patient was placed on a diltiazem drip and was started on po diltiazem. Free T4 was high normal and we continue her synthyroid 88 mcg daily. Cardiology was consulted and betapace and digoxin were added but she remained in atrial fibrillation and developed bradycardia. She was sedated and defibrillated today and is not in sinus rhythm. Patient will be discharged today when she wakes up and will follow up with Cardiology and Dr. Ryder as scheduled. - Time spent with patient Time with patient DS: Greater than 30 minutes (35 min) Diagnosis - Discharge Diagnosis (1) Atrial fibrillation with rapid ventricular response Status: Acute (2) Graves disease Status: Chronic Specialty Discharge - Follow Up or Referrals Follow up with: Fahad Chacko MD [Physician] - 01/24/17 8:40 am (1 week with ekg) Discharge Plan - Discharge Data Disposition: Disch To Home/Self Care Condition at Discharge: Stable Discharge Diet: heart healthy Activity: resume usual activities as tolerated Hygiene: no restrictions - Discharge Medications New Apixaban [Eliquis] 5 mg PO BID #60 tablet Levothyroxine Tab [Synthroid Tab] 88 mcg PO DAILY@0700 tablet Pantoprazole Tab [Protonix Tab] 40 mg PO DAILY #30 tablet Sotalol [Betapace] 80 mg PO BID #60 tablet Continue [place]-3 Fatty Acids [Fish Oil Concentrate] 1,000 mg PO BEDTIME Levothyroxine Tab [Synthroid Tab] 88 mcg PO DAILY Discontinued amLODIPine [Norvasc] 5 mg PO BEDTIME Aspirin [Aspirin EC] 81 mg PO BEDTIME Calcium (Carb)/Vit D 500-200 [Oscal 500 + D] 1 tablet PO BEDTIME - Follow Up or Referral Follow Up: Fahad Chacko MD [Physician] - 01/24/17 8:40 am (1 week with ekg) Geri Ryder M.D. [Physician] - 2 Weeks (double check that this is her primary doctor ) - Forms/Instructions Exam - Constitutional Vitals: Period Temp Pulse Resp BP Sys/Eller Pulse Ox Last 24 Hr 97.2 F-98.8 F 62-86 12-20 118-150/56-92 92-98 General appearance: normal weight, no acute distress - Respiratory Respiratory exam: Present: clear to auscultation bilaterally. Absent: rhonchi, wheezes - Cardiovascular Cardiovascular exam: Present: regular rate and rhythm. Absent: systolic murmur - GI/Abdominal GI/Abdominal exam: Present: normal bowel sounds, soft. Absent: tenderness - Extremities Exam Extremities exam: Present: normal inspection, normal capillary refill DS: Provider Date of admission: 01/14/17 20:26 Primary care physician: . No PCP Attending physician on admission: Estrella Pickard MD Consults: 01/14/17 20:27 Consult to Physician [CONS] Routine Comment: new onset afib Consulting Provider: Fahad Chacko When should Consulting Provider be notified: In am Consult to Specialist Group: Cardiology Person Notified: [email or web address] Date Notified: 01/15/17 Time Notified: 07:55 Discharging clinician: Estrella Pickard MD
[2017-01-17 12:46] VITALS: BP 114/44
== END 2017-01-17 14:27 | disposition home or self-care (01) | DRG 310 ==
LOC: N.ED 16:21 → N.EDINP 20:26 → N.TELES 21:53
PROVIDERS: ADMIT Internal Medicine; ATTEND Internal Medicine